=== PATIENT | female | born 1990 | race Caucasian/White ===

== ENCOUNTER 2018-05-12 14:06 | Emergency (ER) | payer OTHER ==
[2018-05-12 14:45] VITALS: BP 111/66
--- NOTE | 2018-05-12 15:00 | UC ---
Skin Complaint HPI - HPI Summary HPI Summary: Patient states she was stung on the bottom of her left foot around the base of her great toe Friday morning area did she noted the area to be a little itchy and mildly swollen; however, today the swelling and discomfort has become much worse plus she noticed more redness. She's been self treating with Benadryl routinely without relief. She denies any cough, short of breath and fever. She does know a tiny spot on the adjacent toe which she thinks might be an insect bite but she is uncertain. She is no associated joint pain. - History of Current Complaint Chief Complaint: UCGeneralIllness Time Seen by Provider: 05/12/18 14:54 Stated Complaint: BEE STING Hx Obtained From: Patient Hx Last Menstrual Period: 04/19/18 Onset/Duration: Gradual Onset Pain Intensity: 4 Aggravating Factor(s): Touch Alleviating Factor(s): Nothing Associated Signs & Symptoms: Positive: Rash, Tenderness. Negative: Fever, Red Streaks, Joint Swelling - Allergy/Home Medications Allergies/Adverse Reactions: Allergies Allergy/AdvReac Type Severity Reaction Status Date / Time No Known Allergies Allergy Verified 05/12/18 14:39 Review of Systems Constitutional: Negative Skin: Rash - L foot Eyes: Negative ENT: Negative Respiratory: Negative Cardiovascular: Negative Gastrointestinal: Negative Genitourinary: Negative Motor: Negative Neurovascular: Negative Musculoskeletal: Negative Neurological: Negative Psychological: Negative Is Patient Immunocompromised?: No All Other Systems Reviewed And Are Negative: Yes PMH/Surg Hx/FS Hx/Imm Hx Previously Healthy: Yes - Surgical History Surgical History: Yes Surgery Procedure, Year, and Place: appy - Family History Known Family History: Positive: Hypertension - Social History Occupation: Employed Full-time Lives: With Family Alcohol Use: Rare Substance Use Type: None Substance Use Comment - Amount & Last Used: positive last on 03/22/15 Smoking Status (MU): Light Every Day Tobacco Smoker Type: Cigarettes Amount Used/How Often: 7-8 cig/day Have You Smoked in the Last Year: Yes Household Exposure Type: Cigarettes - Immunization History Most Recent Influenza Vaccination: unsure Most Recent Tetanus Shot: 01/19/15 Most Recent Pneumonia Vaccination: never Vaccination Up to Date: Yes Physical Exam Triage Information Reviewed: Yes Appearance: Well-Appearing Vital Signs: Initial Vital Signs Temp 99 F 05/12/18 14:40 Pulse 83 05/12/18 14:40 Resp 15 05/12/18 14:40 BP 111/66 05/12/18 14:40 Pulse Ox 100 05/12/18 14:40 Vital Signs Reviewed: Yes Eyes: Positive: Conjunctiva Clear ENT: Positive: Normal ENT inspection Neck: Positive: Supple, Nontender, No Lymphadenopathy Respiratory: Positive: Lungs clear, Normal breath sounds Cardiovascular: Positive: RRR, No Murmur Abdomen Description: Positive: Nontender, No Organomegaly, Soft Bowel Sounds: Positive: Present Musculoskeletal: Positive: ROM Intact Neurological: Positive: Alert Psychological: Positive: Age Appropriate Behavior Skin Exam: Normal, Other - Left dorsal foot has mild erythema and swelling to the great toe that extends into the base of the second toe. The areas slightly warm and patient notes minimally tender. There is tiny red dot on the second toe with no erythema. The foot has full sensorivascular motor function and there is no streaking. There is no inguinal adenopathy. Course/Dx - Course Course Of Treatment: exam c/w local reaction. the abrupt worsening 48 hours alter may imply secondary infection. will tx with steroid and antibiotic. need for close f/u and recheck stressed. - Diagnoses Provider Diagnoses: Sting L foot. Possible secondary infection. Discharge - Sign-Out/Discharge Documenting (check all that apply): Patient Departure - Discharge Plan Condition: Stable Disposition: HOME Prescriptions: Amoxicillin/Clavulanate TAB* [Augmentin TAB 875*] 875 mg PO BID #14 tab predniSONE [Prednisone 20 MG TAB] 40 mg PO DAILY 5 Days #10 tablet Patient Education Materials: Insect Bite or Sting (ED) Referrals: Aditi Thomas MD [Primary Care Provider] - 3 Days Additional Instructions: Per institutional requirements, I have reviewed the chart, however, I was not consulted specifically or made aware of this patient by the above midlevel provider. I did not personally evaluate, interact with , or disposition this patient. - Billing Disposition and Condition Condition: STABLE Disposition: Home
== END 2018-05-12 15:11 | disposition home or self-care (01) ==
LOC: UCCORT 14:06
DX: T63.441A Toxic effect of venom of bees, accidental (unintentional), initial encounter (principal); L53.0 Toxic erythema; Y92.9 Unspecified place or not applicable; F17.210 Nicotine dependence, cigarettes, uncomplicated
CPT/HCPCS: 99212; G0463

== ENCOUNTER 2018-07-17 12:01 | Emergency (ER) | payer OTHER ==
[2018-07-17 12:12] VITALS: BP 121/90
[2018-07-17] MEDS ORDERED: Cyclobenzaprine TAB* 10 MG PO ONE (13:56)
[2018-07-17] MEDS ORDERED: Acetaminophen TAB* 325 MG PO ONE (13:56)
[2018-07-17] MEDS ORDERED: Ibuprofen TAB* 600 MG PO ONE (13:56)
--- NOTE | 2018-07-17 14:33 | RAD ---
Indication: RIGHT shoulder pain and decreased range of motion following repeated heavy lifting without specific injury. Comparison: No relevant prior exams available on the [facility] for comparison. Technique: Internal rotation AP, external rotation Grashey, scapular Y, axillary views RIGHT shoulder Report: Negative for fracture. Normal acromioclavicular and glenohumeral joint alignment. No significant acromioclavicular or glenohumeral joint arthropathic change. On the internal rotation view there is suggestion of calcific tendinopathy at the level of the teres minor tendon. Unremarkable soft tissue contours. IMPRESSION: #. Suggestion of calcific tendinopathy at the teres minor tendon.
--- NOTE | 2018-07-17 14:34 | ED ---
Upper Extremity Pain - HPI Summary HPI Summary: This patient is a 28 year old F presenting to [facility] accompanied by family with a chief complaint of steadily worsening 6/10 right primarily posterior, shoulder pain. 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 She endorses DROM secondary to pain, preventing her from lifting the arm above shoulder level. She endorses pain and numbness radiating down her arms to her fingers, which she describes as like when someone punches you in the shoulder. She denies a specific incident causing the injury; she attributes it to constant, repeated use. Pt endorses some sx alleviation from Tylenol, last taken at 0800. - History of Current Complaint Chief Complaint: EDExtremityUpper Stated Complaint: RT SHOULDER PAIN Hx Obtained From: Patient Hx Last Menstrual Period: 04/19/18 Mechanism Of Injury: Other - repeated lifting Onset/Duration: Started Weeks Ago, Worse Since - gradually worsening Timing: Constant Severity Initially: Mild Severity Currently: Moderate Pain Location: Shoulder - L Aggravating Factor(s): Movement, Lifting Alleviating Factor(s): OTC Meds - tylenol Associated Signs & Symptoms: Positive: Numbness/Tingling. Negative: Fever, Chest Pain, SOB, Back Pain, Neck Pain Related History: Occupational Injury - Allergies/Home Medications Allergies/Adverse Reactions: Allergies Allergy/AdvReac Type Severity Reaction Status Date / Time No Known Allergies Allergy Verified 07/17/18 12:09 PMH/Surg Hx/FS Hx/Imm Hx Endocrine/Hematology History: Denies: Hx Diabetes, Hx Sickle Cell Disease Cardiovascular History: Denies: Hx Hypertension GI History: Denies: Hx Ileostomy History: Denies: Hx Dialysis Sensory History: Denies: Hx Legally Blind, Hx Deafness Opthamlomology History: Denies: Hx Legally Blind EENT History: Denies: Hx Deafness Neurological History: Denies: Hx Dementia Psychiatric History: Denies: Hx Schizophrenia - Surgical History Surgery Procedure, Year, and Place: appy Infectious Disease History: No Infectious Disease History: Denies: Traveled Outside the [place] in Last 30 Days - Family History Known Family History: Positive: Hypertension - Social History Occupation: Employed Full-time Alcohol Use: Rare Substance Use Type: Reports: None Substance Use Comment - Amount & Last Used: positive last on 03/22/15 Smoking Status (MU): Light Every Day Tobacco Smoker Type: Cigarettes Amount Used/How Often: 7-8 cig/day Have You Smoked in the Last Year: Yes Review of Systems Negative: Fever Negative: Photophobia, Blurred Vision, Diplopia Positive: Sore Throat. Negative: Ear Ache Negative: Chest Pain Negative: Shortness Of Breath Negative: Abdominal Pain, Other - blood in stool Positive: no symptoms reported. Negative: dysuria Positive: Arthralgia - right shoulder, Myalgia - R arm, Decreased ROM Negative: Bruising Positive: Numbness. Negative: Headache All Other Systems Reviewed And Are Negative: No Physical Exam - Summary Physical Exam Summary: Appearance: Alert, conversive, nontoxic appearing Skin: Warm, dry, no mottling, no rashes, no contusions HEENT: EOMI, PERRL, moist mucous membranes Neck: No masses on the neck, supple Respiratory: Clear to auscultation, breath sounds present, no rales, no rhonchi , no wheezes Cardiovascular: RRR, pulses are symmetrical in both lower and upper extremities Abdomen: Soft, non-tender Bowel Sounds: Present Musculoskeletal: No CVA tenderness, no obvious deformity. DROM right shoulder, decreased strength of RUE secondary to pain. Sensation was normal. Neurological: A&Ox3, CN II-XII Intact, DROM right shoulder, decreased strength of RUE secondary to pain. Sensation was normal. Psychiatric: Normal affect and mood Triage Information Reviewed: Yes Vital Signs On Initial Exam: Initial Vitals Temp Pulse Resp BP Pulse Ox 98.6 F 86 14 121/90 99 07/17/18 12:09 07/17/18 12:09 07/17/18 12:09 07/17/18 12:09 07/17/18 12:09 Vital Signs Reviewed: Yes Diagnostics - Vital Signs Vital Signs Temp Pulse Resp BP Pulse Ox 07/17/18 12:09 98.6 F 86 14 121/90 99 - Laboratory Lab Statement: Any lab studies that have been ordered have been reviewed, and results considered in the medical decision making process. - Radiology R shoulder XR Xray Interpretation: Positive (See Comments) Radiology Interpretation Completed By: Radiologist - Suggestion of calcific tendinopathy at the teres minor tendon. Dr. Chris has reviewed this report. Re-Evaluation - Re-Evaluation First Eval Re-Evaluation Time: 15:24 Change: Improved Comment: Gave pt a sling, talked about PT, follow up with ortho. Course/Dx - Course Course Of Treatment: A 28 y/o F presents to the ED complaining of gradually worsening right shoulder pain. 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 A R shoulder XR suggests of calcific tendinopathy at the teres minor tendon. Gave the patient a sling, discussed PT, and recommended follow up with ortho. - Diagnoses Provider Diagnoses: Calcific tendonitis of right shoulder Discharge - Sign-Out/Discharge Documenting (check all that apply): Patient Departure - Discharge Plan Condition: Stable Disposition: HOME Prescriptions: Cyclobenzaprine TAB* [Flexeril 10 MG TAB*] 10 mg PO TID PRN #30 tab MDD 3 PRN Reason: Pain - Mild Patient Education Materials: Calcific Tendinitis (ED) Forms: *Work Release Referrals: Aditi Thomas MD [Primary Care Provider] - Additional Instructions: Please take tylenol and motrin for pain. return if worse or any new symptoms. Please avoid any heavy lifting. please follow up with your doctor next week. Take flexeril as instructed for muscle strain. - Billing Disposition and Condition Condition: STABLE Disposition: Home - Attestation Statements Document Initiated by Scribe: Yes Documenting Scribe: Gopi Salinas Provider For Whom Randolph is Documenting (Include Credential): Dr. Juliana Chris MD Scribe Attestation: Gopi Shine scribed for Dr. Juliana Chris MD on 07/17/18 at 1954. Scribe Documentation Reviewed: Yes Provider Attestation: The documentation as recorded by the Gopi martinez accurately reflects the service I personally performed and the decisions made by me, Dr. Juliana Chris MD
== END 2018-07-17 16:06 | disposition home or self-care (01) ==
LOC: ED 12:01
DX: M75.31 Calcific tendinitis of right shoulder (principal); M25.511 Pain in right shoulder; F17.210 Nicotine dependence, cigarettes, uncomplicated; J02.9 Acute pharyngitis, unspecified
CPT/HCPCS: 99282; A9270-GY

== ENCOUNTER 2019-04-09 14:12 | Emergency (ER) | payer OTHER ==
--- NOTE | 2019-04-09 14:44 | ED ---
Complex/Multi-Sys Presentation - HPI Summary HPI Summary: 29-year-old female presents with hair and weight loss for the past month. She states that she has had unintentional weight loss. She admits to night sweats. No fevers. No abnormal lumps or bumps. Denies any nodules in her throat. She denies any nail changes. She denies abdominal pain. No nausea or vomiting. No blood in her stool. Denies any current chest pain or shortness breath. Denies any recent illness. She admits to generalized weakness. She does not have a primary. - History Of Current Complaint Chief Complaint: EDGeneral Time Seen by Provider: 04/09/19 14:23 - Allergies/Home Medications Allergies/Adverse Reactions: Allergies Allergy/AdvReac Type Severity Reaction Status Date / Time No Known Allergies Allergy Verified 04/09/19 14:17 PMH/Surg Hx/FS Hx/Imm Hx Endocrine/Hematology History: Denies: Hx Diabetes, Hx Sickle Cell Disease Cardiovascular History: Denies: Hx Hypertension GI History: Denies: Hx Ileostomy History: Denies: Hx Dialysis Sensory History: Denies: Hx Legally Blind, Hx Deafness Opthamlomology History: Denies: Hx Legally Blind Neurological History: Denies: Hx Dementia Psychiatric History: Denies: Hx Schizophrenia - Surgical History Surgery Procedure, Year, and Place: appy Infectious Disease History: No Infectious Disease History: Denies: Traveled Outside the [place] in Last 30 Days - Family History Known Family History: Positive: Hypertension - Social History Alcohol Use: Rare Substance Use Type: Reports: None Substance Use Comment - Amount & Last Used: positive last on 03/22/15 Smoking Status (MU): Light Every Day Tobacco Smoker Type: Cigarettes Amount Used/How Often: 7-8 cig/day Have You Smoked in the Last Year: Yes Review of Systems Positive: Fatigue. Negative: Fever Negative: Chest Pain Negative: Shortness Of Breath Neurological: Other - weight loss, hair loss All Other Systems Reviewed And Are Negative: Yes Physical Exam Triage Information Reviewed: Yes Vital Signs On Initial Exam: Initial Vitals Temp Pulse Resp BP Pulse Ox 98.1 F 78 18 141/93 100 04/09/19 14:16 04/09/19 14:16 04/09/19 14:16 04/09/19 14:16 04/09/19 14:16 Vital Signs Reviewed: Yes Appearance: Positive: Well-Appearing Skin: Positive: Warm, Dry Head/Face: Positive: Normal Head/Face Inspection Eyes: Positive: Normal, Conjunctiva Clear ENT: Positive: Pharynx normal, Other - no thyroid nodule felt Respiratory/Lung Sounds: Positive: Clear to Auscultation, Breath Sounds Present Cardiovascular: Positive: Normal, RRR Abdomen Description: Positive: Nontender, Soft Bowel Sounds: Positive: Present Musculoskeletal: Positive: Normal Neurological: Positive: Normal Psychiatric: Positive: Normal Diagnostics - Vital Signs Vital Signs Temp Pulse Resp BP Pulse Ox 04/09/19 14:16 98.1 F 78 18 141/93 100 - Laboratory Result Diagrams: 04/09/19 14:47 04/09/19 14:47 Lab Statement: Any lab studies that have been ordered have been reviewed, and results considered in the medical decision making process. Complex Multi-Symp Course/Dx Course Of Treatment: 29-year-old female presents with hair and weight loss for the past month. She states that she has had unintentional weight loss. She admits to night sweats. No fevers. No abnormal lumps or bumps. Denies any nodules in her throat. She denies any nail changes. She denies abdominal pain. No nausea or vomiting. No blood in her stool. Denies any current chest pain or shortness breath. Denies any recent illness. She admits to generalized weakness. She does not have a primary. On exam normal physical exam. No thyroid nodules. White blood count normal. Patient is not anemic. electrolytes normal. kidney and liver function normal. tsh normal. will give referral to primary. patient understand and agrees with plan. - Diagnoses Differential Diagnoses/HQI/PQRI: Metabolic Abnormality, Urinary Tract Infection , Other - thyroid Provider Diagnoses: Weight loss, Fatigue, Hair loss Discharge - Sign-Out/Discharge Documenting (check all that apply): Patient Departure Patient Received Moderate/Deep Sedation with Procedure: No - Discharge Plan Condition: Good Disposition: HOME Referrals: Chivo Thomas-MD Ezekiel [Primary Care Provider] - [facility] [Outside] Additional Instructions: establish care with primary Return to ED if develop any new or worsening symptoms - Billing Disposition and Condition Condition: GOOD Disposition: Home
[2019-04-09 14:54] LABS: ABS Eosinophils 0.1 10^3/ul (0-0.6); ABS Lymphocytes 1.5 10^3/ul (1.0-4.8); ABS Monocytes 0.4 10^3/ul (0-0.8); ABS Neutrophils 5.1 10^3/ul (1.5-7.7); Eosinophil % 1.6 %; Hematocrit 42 % (35-47); Hemoglobin 14.2 g/dL (12.0-16.0); Mean Corpuscular HGB Conc 34 g/dL (31-36); Mean Corpuscular Hemoglobin 29 pg (27-31); Mean Corpuscular Volume 87 fL (80-97); Mean Platelet Volume 8.7 fL (7.4-10.4); Nucleated Red Blood Cells % 0.1; Platelet Count 227 10^3/uL (150-450); Red Blood Count 4.88 10^6 /uL (3.70-4.87); Red Cell Distribution Width 13 % (10-15); White Blood Count 7.2 10^3/uL (3.5-10.8)
[2019-04-09 15:15] LABS: Albumin 4.4 g/dL (3.2-5.2); Albumin/Globulin Ratio 1.4 (1-3); BUN/Creatinine Ratio 21.7 (8-20); Calcium 9.3 mg/dL (8.6-10.3); EGFR African American 120.1 (>60); EGFR Non-African American 99.2 (>60); Globulin 3.1 g/dL (2-4); Potassium 4.2 mmol/L (3.5-5.0); Total Bilirubin 0.5 mg/dL (0.2-1.0); Total Protein 7.5 g/dL (6.4-8.9)
[2019-04-09 15:30] LABS: TSH (Thyroid Stimulating Horm) 1.39 mcIU/mL (0.34-5.60)
[2019-04-09 16:16] VITALS: BP 118/76
== END 2019-04-09 16:11 | disposition home or self-care (01) ==
LOC: ED 14:12
DX: L65.9 Nonscarring hair loss, unspecified (principal); R63.4 Abnormal weight loss; R53.83 Other fatigue; F17.210 Nicotine dependence, cigarettes, uncomplicated
CPT/HCPCS: 36415; 80053; 84443; 85025; 99282